=== PATIENT | female | born 1975 | race Caucasian/White ===

== ENCOUNTER → 2024-02-18 15:12 | Outpatient (REF) | payer OTHER, SELFPAY | LOC: HWWDC 15:12 | PROVIDERS: ATTENDING PHYSICIAN Obstetrics & Gynecology; FAMILY PHYSICIAN Internal Medicine | DX: Z12.31 Encounter for screening mammogram for malignant neoplasm of breast (principal) | CPT/HCPCS: 77063; 77067 ==

== ENCOUNTER → 2025-02-20 11:32 | Outpatient (REF) | payer OTHER, SELFPAY | LOC: WDC 11:32 | PROVIDERS: ATTENDING PHYSICIAN Nurse Practitioner Adult Health; FAMILY PHYSICIAN Nurse Practitioner | DX: Z12.31 Encounter for screening mammogram for malignant neoplasm of breast (principal) | CPT/HCPCS: 77063; 77067 ==